=== PATIENT | female | born 2005 | race Caucasian/White ===

== ENCOUNTER 2025-03-10 09:22 | Outpatient (AMB) | payer MEDICAID, SELFPAY ==
--- NOTE | 2025-03-10 09:31 | AMB.OBINITIA ---
Vital Signs 03/10/25 09:32 Height 1.78 m Height Method Stated Weight 57.266 kg Weight Measurement Method Standing Scale BMI 18.1 BP 121/74 Blood Pressure Source Automatic Cuff Blood Pressure Location Left Upper Arm Position Sitting Respiration 16 Pulse 85 Pulse Source Monitor Temp 97.2 F Temp Source Oral Pulse Oximetry (%) 98 Oxygen Delivery Method Room Air Allergies/Home Meds Allergies & Medications Allergies No Known Allergies Allergy (Verified 03/10/25 09:34) Medication Reconciliation No Known Home Medications 03/10/25 [History Confirmed 03/10/25] Intake Visit Data Collection New Patient or Established: New Patient (never been to [facility]) Reason for Visit:: obi Seen by Clinical Staff ONLY (RN/MA): No Content Engineer Required: No Do You Feel Safe at Home: Yes Authorities Contacted: N/A PCP or OBGYN visit in last 3 months: Yes Date of Last PCP or OBGYN visit: 03/08/25 Hx Now: Yes Are you currently on any form of Control: No Last menstrual period: 02/02/25 Pain Present Currently: No Pain Scale Used: Mclain-Murphy/Numerical Pain scale:: 0 Smoking Status Smoking Status: Never smoker Questionnaires Covid-19 Vaccine Questionnaire Has patient been vacinated for Covid-19 Have you been vacinated for Covid-19: Yes PHQ-9 PHQ-2 Over the last 2 weeks, how often have you been bothered by any of the following problems? 1. Little interest or pleasure in doing things: not at all 2. Feeling down, depressed, or hopeless: not at all Total score: 0 PHQ-9 3. Trouble falling or staying asleep, or sleeping too much: Not at all 4. Feeling tired or having little energy: Not at all 5. Poor appetite or overeating: Not at all 6. Feeling bad about yourself - or that you are a failure or have let yourself or your family down: Not at all 7. Trouble concentrating on things, such as reading the newspaper or watching television: Not at all 8. Moving or speaking so slowly that other people could have noticed? - Or the opposite - being so fidgety or restless that you have been moving around a lot more than usual: not at all 9. Thoughts that you would be better off or of hurting yourself in some way: Not at all Total score: 0 If you checked off any problems, how difficult have these problems made it for you to do your work, take care of things at home, or get along with other people?: not difficult at all Source: Developed by Drs. Tomy Barcenas, Génesis Chatterjee, Pierce Nash and colleagues, with an educational florin from [employer]. Depression screen completed yes Social History Living Situation History Marital Status: Single Lives With: Family Housing: House Tobacco History Smoking Status: Never smoker Second Hand Smoke Exposure: No Domestic Abuse History Do You Feel Safe at Home: Yes History of Present Illness HPI Narrative 19 Years old G2 P?0 at gestational age?5.1 weeks based on last menstrual period of dated02/02/2025 No complaints so far Here for first visit LMP as above Ultrasound refer today OB/medical problems based on last second trimester miscarriage , has cervical incompetence Allergies as noted Surgical history none social history denies OB Initial Visit OB Flowsheet OB Flowsheet Initial Weight: Not Recorded Date <del>?</del> EGA Weight BP Alb Glu CTX Pres Fundal ht FHR Mov Dilation Station Effacement Hx Notes Visit Note 03/10/25 <del>?</del> 5w 1d 57.266 kg 121/74 Menstrual History Menstrual reliability: definite Flow: normal Menstrual regularity: irregular Monthly: No Age at menarche: 16 On control pills at conception: No OB History : 2 Para: 1 Hx # Pregnancies: 1 # of Living Children: 0 Delivery History 1st : date: 10/01/24 sex: female Gestational age at delivery (weeks): 20 Delivery type: vaginal Delivery complications: CAME EARLY BABY NOT ALIVE DEMISE History of depression before or after : No Infection History & Risk Evaluation History of STDs: none HIV risk evaluation: low risk Hepatitis B risk evaluation: low risk Patient or partner has history of Genital Herpes: No Varicella/chicken pox status: immunized Genetic Screening & History Genetic Screening/Teratology Counseling - Includes patient, baby's father, or anyone in either family with: 1. Patient's age 35 years or older as of estimated date of delivery: No 2. Thalassemia (French, Burkinan, Mediterranean, or Background); MCV less than 80: No 3. Neural Tube Defect (Meningomyelocele, Spina Bifida, or Anencephaly): No 4. Congenital Heart Defect: No 5. Down Syndrome: No 6. Feliz-Sachs (Ashkenazi Denominational, Cajun, Occitan [place]): No 7. Kaity Disease (Ashkenazi Denominational): No 8. Familial Dysautonomia (Ashkenazi Denominational): No 9. Sickle Cell Disease or Trait (): No 10. Hemophilia or other blood disorders: No 11. Muscular Dystrophy: No 12. Cystic Fibrosis: No 13. Elijah's Chorea: No 14. Mental Retardation/Autism: No 15. Other inherited genetic or chromosomal disorder: No 16. Maternal Metabolic Disorder (EG,TYPE 1 Diabetes, PKU): No 17. Patient or baby's father had a child with defects not listed above: No 18. Recurrent loss or a stillbirth: No 19. Medications (including supplements, vitamins, herbs or otc drugs)/illicit/recreational drugs/alcohol since last menstrual period: No 20. Any other: No Infection History 1. Live with someone with TB or exposed to TB: No 2. Rash or viral illness since last menstrual period: No 3. Hepatitis B,C: No Other (see comments) Source: [employer] Review of Systems Review of Systems Narrative Review of Systems: Reviewed all 14 point review of systems and all is negative except as noted Exam Narrative Physical exam: Alert and oriented x 3 no shortness of breath Pain no chest pain no palpitations Chest clear bilaterally no additional sounds, no wheezing no rales CVS regular rate and rhythm No CVAT Abdomen nontender, normal bowel sounds No guarding no rigidity No hernias Results Objective Laboratory: ordered ob initial labs Imaging: [facility] Procedures OBC Clinic LOC & Office Proc's Nursing/Assessment Patient Status: Established Patient OB Clinic Nursing Assessment: Medication Reconciliation, Update PMH in EMR and Vital Signs OB Clinic Coordination of Care: Consent,records obtained, informed consent, Education Simp Pt/Fam, Lab and Imaging orders, Results/Orders obtained and Staff clarify orders Established Patient Charge Established Patient Point Assignment: 80 Established Patient Point Charge: EP Level 3 (80-115) Assessment & Plan Diagnosis / Problem List (1) Cervical incompetence: Status: Acute (2) : Status: Acute (3) High risk case management patient in first trimester: Status: Acute Plan ob intial labs and NIPT at 9 weeks refer to MFM at [facility] for consult/ and for cervical cerclage Additional Assessment patient to do normal activity Additional Plan Follow Up: 4 Weeks
[2025-03-10 09:32] VITALS: BP 121/74; PULSE 85; RESP 16; TEMP 36.2; O2SAT 98; BMI 18.1
== END 2025-03-10 10:25 | disposition home or self-care (01) ==
LOC: HODSOBC 09:22
PROVIDERS: Supervising Provider Obstetrics & Gynecology; Visit Provider Obstetrics & Gynecology
DX: O09.891 Supervision of other high risk pregnancies, first trimester (principal); O34.31 Maternal care for cervical incompetence, first trimester; Z3A.01 Less than 8 weeks gestation of pregnancy
CPT/HCPCS: 99213; G0463

== ENCOUNTER 2025-03-30 10:50 | Outpatient (AMB) | payer MEDICAID, SELFPAY ==
--- NOTE | 2025-03-30 10:56 | OBCLNT_ITS ---
Vital Signs 03/30/25 10:57 Height 1.78 m Height Method Stated Weight 56.869 kg Weight Measurement Method Standing Scale BMI 17.9 BP 116/70 Blood Pressure Source Automatic Cuff Blood Pressure Location Left Upper Arm Position Standing Respiration 18 Pulse 82 Pulse Source Monitor Temp 97.2 F Temp Source Oral Pulse Oximetry (%) 98 Oxygen Delivery Method Room Air Allergies/Home Meds Allergies & Medications Allergies No Known Allergies Allergy (Verified 03/30/25 10:57) Medication Reconciliation No Known Home Medications 03/10/25 [History Confirmed 03/30/25] Intake Visit Data Collection New Patient or Established: Established Patient (seen at [facility] within 3 years) Reason for Visit:: OBC Seen by Clinical Staff ONLY (RN/MA): No Chin Strap Maker Required: No Do You Feel Safe at Home: Yes Authorities Contacted: N/A PCP or OBGYN visit in last 3 months: Yes Date of Last PCP or OBGYN visit: 03/10/25 Hx Now: Yes Are you currently on any form of Control: No Pain Present Currently: No Pain Scale Used: Mclain-Murphy/Numerical Pain scale:: 0 Smoking Status Smoking Status: Never smoker Immunizations Flu Vaccine in the Last 12 Months: No Flu Vaccine Exclusion Criteria: No Exclusion Criteria Questionnaires Covid-19 Vaccine Questionnaire Has patient been vacinated for Covid-19 Have you been vacinated for Covid-19: Yes PHQ-9 PHQ-2 Over the last 2 weeks, how often have you been bothered by any of the following problems? 1. Little interest or pleasure in doing things: not at all 2. Feeling down, depressed, or hopeless: not at all Total score: 0 PHQ-9 3. Trouble falling or staying asleep, or sleeping too much: Not at all 4. Feeling tired or having little energy: Not at all 5. Poor appetite or overeating: Not at all 6. Feeling bad about yourself - or that you are a failure or have let yourself or your family down: Not at all 7. Trouble concentrating on things, such as reading the newspaper or watching television: Not at all 8. Moving or speaking so slowly that other people could have noticed? - Or the opposite - being so fidgety or restless that you have been moving around a lot more than usual: not at all 9. Thoughts that you would be better off or of hurting yourself in some way: Not at all Total score: 0 If you checked off any problems, how difficult have these problems made it for you to do your work, take care of things at home, or get along with other people?: not difficult at all Source: Developed by Drs. Tomy Barcenas, Génesis Chatterjee, Pierce Nash and colleagues, with an educational florin from [employer]. Depression screen completed yes Social History Living Situation History Lives With: Family Housing: House Tobacco History Smoking Status: Never smoker Second Hand Smoke Exposure: No Domestic Abuse History Do You Feel Safe at Home: Yes Care OB Visit Log OB Flowsheet Initial Weight: Not Recorded Date -?-?-?-?-?-?-?-?-?-?-?-?- EGA Weight BP Alb Glu CTX Pres Fundal ht FHR Mov Dilation Station Effacement Hx Notes Visit Note 03/10/25 -?-?-?-?-?-?-?-?-?-?-?-?- 5w 1d 57.266 kg 121/74 03/30/25 -?-?-?-?-?-?-?-?-?-?-?-?- 8w 0d 56.869 kg 116/70 MERLYN Calculator Estimated Delivery Date Method Current WG Current Estimate 11/09/25 LMP (Certain) 8w 0d Notes Visit Date: 03/30/25 Last Updated by: Marietta Joya MD referral to perinatology at [facility] for evaluation and for cervical cerclage /on 03/10/2025 NIPT ordered for 9 weeks / dated by LMP of 02/02/2025 recently started working at [employer] and has to lift boxes and had spotting and went to the hospital and was told she had a hematoma ? reprt not available Labs done 03/14/2025 AB Positive / HbsAg negative, hepatitis C antibody nonreactive, RPR nonreactive, rubella immune, HIV nonreactive, chlamydia and gonorrhea negative, hemoglobin 13.1, platelets 434, urine culture negative, hemoglobin A1c 5.5 and she has an appointment with the perinatologist coming upon 05/07/2025 She had spotting and will excuse from work US today show FCA and GS and CRL c/w 7.1 week / labs reviewed with patient / still needs to do NIPT Follow up 4 week Visit Date: 03/10/25 Last Updated by: Marietta Joya MD ordered ob Initial labs and also referral to perinatology at [facility] for evaluation and for cervical cerclage / follow up 4 weeks NIPT ordered for 9 weeks / dated by LMP of 02/02/2025 Office Procedures OBC Clinic LOC & Office Proc's Nursing/Assessment Patient Status: Established Patient OB Clinic Nursing Assessment: Medication Reconciliation, Update PMH in EMR and Vital Signs OB Clinic Coordination of Care: Consent,records obtained, informed consent, Education Simp Pt/Fam, Lab and Imaging orders, Results/Orders obtained and Staff clarify orders Special Needs: Heart tones Established Patient Charge Established Patient Point Assignment: 110 Established Patient Point Charge: EP Level 3 (80-115) Assessment & Plan Diagnosis / Problem List (1) High risk case management patient in first trimester: Status: Acute (2) Cervical incompetence: Status: Acute (3) : Status: Acute Qualifiers: Weeks of gestation: 8 weeks Qualified Code(s): Z3A.08 - 8 weeks gestation of (4) Threatened : Status: Acute Additional Plan excuse from work now for threatened miscarriage and ongoing as has h/o of ce rvical incompetence and will see Perinatologist on 05/07/2025 for cerclage evaluation Follow up 4 weeks Follow Up: 4 Weeks
[2025-03-30 10:57] VITALS: BP 116/70; PULSE 82; RESP 18; TEMP 36.2; O2SAT 98; BMI 17.9
== END 2025-03-30 11:51 | disposition home or self-care (01) ==
LOC: HODSOBC 10:50
PROVIDERS: Supervising Provider Obstetrics & Gynecology; Visit Provider Obstetrics & Gynecology
DX: O09.891 Supervision of other high risk pregnancies, first trimester (principal); O34.31 Maternal care for cervical incompetence, first trimester; O20.0 Threatened abortion; Z3A.08 8 weeks gestation of pregnancy
CPT/HCPCS: 99213; G0463

== ENCOUNTER 2025-04-09 22:42 | Emergency (ER) | payer MEDICAID, SELFPAY ==
[2025-04-09 22:43] VITALS: BMI 26.3
[2025-04-09 22:59] VITALS: BP 118/72; PULSE 80; RESP 20; TEMP 36.9; O2SAT 99
--- NOTE | 2025-04-09 23:02 | XR_ITS ---
Examination: Complete OB ultrasound, less than 14 weeks, transabdominal Date and time of exam: April 06, 2025 1113 hours INDICATIONS: Vaginal bleeding beginning 2 days ago Technique: Obstetrical ultrasound images less than 14 weeks performed via transabdominal imaging Findings: A normal shaped single intrauterine gestation is present in the uterus. CRL 1.8 cm corresponds to 8 weeks 2 days gestational age Cardiac motion 180 bpm Ultrasonographic survey of visible and placental structures unremarkable. Amniotic fluid volume appears appropriate for this estimated gestational age. Right ovary 3.4 cm arterial flow Left ovary 3.6 cm arterial flow IMPRESSION: Viable intrauterine gestation 8 weeks 2 days.
[2025-04-09 23:49] LABS: Collection Type, Urine Voided
[2025-04-10 00:01] LABS: Basophils # (Auto) 0.0 Thou/mm3 (0.0-0.2); Basophils % (Auto) 0 % (0-2.5); Eosinophils # (Auto) 0.1 Thou/mm3 (0.0-0.5); Eosinophils % (Auto) 1 % (0-10); Hematocrit 37.3 % (36.0-46.0); Hemoglobin 12.7 g/dL (12.0-16.0); Immature Granulocytes Auto 0.02 Thou/mm3 (0.00-0.00); Lymphocytes # (Auto) 3.8 Thou/mm3 (1.0-5.0); Lymphocytes % (Auto) 35 % (10-50); Mean Corpuscular HGB Conc 34.0 g/dl (31.0-37.0); Mean Corpuscular Hemoglobin 28.2 pg (25.0-35.0); Mean Corpuscular Volume 83 fL (80-100); Monocytes # (Auto) 0.6 Thou/mm3 (0.0-0.8); Monocytes % (Auto) 6 % (0-12); Neutrophils # (Auto) 6.6 Thou/mm3 (1.8-7.7); Neutrophils % (Auto) 59 % (37-80); Nucleated Red Blood Cell # 0.00 Thou/mm3 (0.00-0.00); Nucleated Red Blood Cell % 0 /100 WBC (0); Platelet Count 368 Thou/mm3 (140-440); RDW Standard Deviation 44.1 fL (36.4-46.3); Red Blood Count 4.51 Miln/mm3 (4.00-5.20); White Blood Count 11.1 Thou/mm3 (4.5-11.0)
[2025-04-10 00:05] LABS: Amorphous Crystals,Urine Present (Absent); Bacteria,Urine Rare; Bilirubin,Urine Negative (Negative); Blood,Urine Negative (Negative); Clarity,Urine Clear (Clear/Hazy); Color,Urine Yellow (Lt Yel-Yel); Glucose, Urine Negative (Negative); Ketones,Urine 3+ (Negative); Leukocyte Esterase,Urine Negative (Negative); Nitrite,Urine Negative (Negative); PH,Urine 6.0 (5.0-7.0); Protein,Urine Trace (Neg - Trace); RBC,Urine 4 /hpf (0-3); Specific Gravity,Urine 1.030 (1.001-1.035); Squamous Epithelial Cell,Urine 10 /hpf (0-5); Urobilinogen,Urine Negative mg/dL (0.0-1.0); WBC,Urine 1 /hpf (0-5)
[2025-04-10 00:21] LABS: Alanine Aminotransferase 21 U/L (10-49); Albumin, Serum 4.8 gm/dL (3.5-5.0); Albumin/Globulin Ratio 2.1 (1.2-2.2); Alkaline Phosphatase 49 U/L (46-116); Anion Gap 12 (7-16); Aspartate Amino Transferase 16 U/L (0-34); BUN/Creatinine Ratio 13 Ratio (12-20); Bilirubin,Total 0.2 mg/dL (0.3-1.2); Blood Urea Nitrogen 8 mg/dL (9-23); Calcium 9.7 mg/dL (8.3-10.6); Calcium (Corrected) 9.7 mg/dL (8.5-10.1); Carbon Dioxide 23.7 mMol/L (20.0-31.0); Chloride 103 mMol/L (98-107); Creatinine (Component) 0.6 mg/dL (0.6-1.3); Estimated Creatinine Clearance 112.9 mL/min (>60); Globulin 2.3 gm/dL (2.3-3.5); Glucose 125 mg/dL (74-106); Osmolality,Calculated 276 (275-295); Potassium 3.5 mMol/L (3.4-5.1); Sodium 139 mMol/L (136-145); Total Protein 7.1 gm/dL (5.7-8.2); eGFR > 60 See Note
--- NOTE | 2025-04-10 01:56 | PD.EDVAGBL ---
ED OB Contraction Preg RMI/HPI General Chief complaint: Abdominal Pain Stated complaint: ABD PAIN AND VOMITING, SPOTTING,9WKS Time Seen by Provider: 04/09/25 22:53 Arrival date/time: 04/09/25 22:42 Related Data Home Medications ?Medication ?Instructions ?Recorded ?Confirmed No Known Home Medications 03/10/25 03/30/25 Allergies Allergy/AdvReac Type Severity Reaction Status Date / Time No Known Allergies Allergy Verified 04/09/25 22:43 Course Orders Category Date Time Status US OB <= 14 weeks fetus Stat Exams 04/09/25 23:02 Completed ABO/RH Type Stat Lab 04/09/25 23:07 Completed Beta HCG,Quantitative Stat Lab 04/09/25 23:07 Completed CBC Stat Lab 04/09/25 23:07 Completed CMP [Comprehensive Metabolic Panel] Stat Lab 04/09/25 23:07 Completed Urinalysis Stat Lab 04/09/25 23:39 Completed Vital Signs Vital signs: Vital Signs Temperature 98.5 F 04/09/25 22:59 Pulse Rate 80 04/09/25 22:59 Respiratory Rate 20 04/09/25 22:59 Blood Pressure 118/72 04/09/25 22:59 Pulse Oximetry (%) 99 04/09/25 22:59 Oxygen Delivery Method Room Air 04/09/25 22:59 Discharge Plan Prescriptions/Referrals Prescriptions/Med Rec: No Action No Known Home Medications Referrals: Riley Powell MD [Primary Care Provider, Family Practice] - In 1 week Patient/Caregiver Discharge Instructions Print Language: Greek
== END 2025-04-10 02:42 | disposition home or self-care (01) ==
PROVIDERS: Nurse Practitioner Family; Emergency Provider Emergency Medicine; PCP Family Medicine
DX: O26.851 Spotting complicating pregnancy, first trimester (principal); O21.9 Vomiting of pregnancy, unspecified; Z3A.09 9 weeks gestation of pregnancy
CPT/HCPCS: 36415; 76801; 80053; 81001; 84702; 85025; 86900; 86901; 99283

== ENCOUNTER 2025-04-20 10:00 | Outpatient (AMB) | payer MEDICAID, SELFPAY ==
--- NOTE | 2025-04-20 10:05 | AMB.OBPNC ---
Vital Signs 04/20/25 10:06 Height 1.47 m Height Method Stated Weight 54.885 kg Weight Measurement Method Standing Scale BMI 25.2 BP 111/76 Blood Pressure Source Automatic Cuff Blood Pressure Location Right Upper Arm Position Sitting Respiration 16 Pulse 80 Pulse Source Monitor Temp 97.7 F Temp Source Temporal Artery Scan Pulse Oximetry (%) 98 Oxygen Delivery Method Room Air Allergies/Home Meds Allergies & Medications Allergies No Known Allergies Allergy (Verified 04/20/25 10:07) Medication Reconciliation No Known Home Medications 03/10/25 [History Confirmed 04/20/25] Immunizations Immunizations Flu Vaccine in the Last 12 Months: No Flu Vaccine Exclusion Criteria: Refused by Patient Care OB Visit Log OB Flowsheet Initial Weight: Not Recorded Date <del>?</del> EGA Weight BP Alb Glu CTX Pres Fundal ht FHR Mov Dilation Station Effacement Hx Notes Visit Note 03/10/25 <del>?</del> 4w 0d 57.266 kg 121/74 03/30/25 <del>?</del> 6w 6d 56.869 kg 116/70 04/20/25 <del>?</del> 9w 6d 54.885 kg 111/76 159 follow up in 4 weeks MERLYN Calculator Estimated Delivery Date Method Current WG Current Estimate 11/17/25 Ultrasound #1 10w 0d Other Estimates 11/09/25 LMP (Certain) 11w 1d Notes Visit Date: 04/20/25 Last Updated by: Marietta Joya MD patient was in ED on 04/11/2025 at [place] and was given Nitrofurantoin and Zofran referred to [facility] for cerclage evaluation bedside US tpday shows heart rate of 159bpm Visit Date: 03/30/25 Last Updated by: Marietta Joya MD referral to perinatology at [facility] for evaluation and for cervical cerclage /on 03/10/2025 NIPT ordered for 9 weeks / dated by LMP of 02/02/2025 recently started working at [employer] and has to lift boxes and had spotting and went to the hospital and was told she had a hematoma ? reprt not available Labs done 03/14/2025 AB Positive / HbsAg negative, hepatitis C antibody nonreactive, RPR nonreactive, rubella immune, HIV nonreactive, chlamydia and gonorrhea negative, hemoglobin 13.1, platelets 434, urine culture negative, hemoglobin A1c 5.5 and she has an appointment with the perinatologist coming upon 05/07/2025 She had spotting and will excuse from work US today show FCA and GS and CRL c/w 7.1 week / labs reviewed with patient / still needs to do NIPT Follow up 4 week Visit Date: 03/10/25 Last Updated by: Marietta Joya MD ordered ob Initial labs and also referral to perinatology at [facility] for evaluation and for cervical cerclage / follow up 4 weeks NIPT ordered for 9 weeks / dated by LMP of 02/02/2025 Office Procedures OBC Clinic LOC & Office Proc's Nursing/Assessment Patient Status: Established Patient OB Clinic Nursing Assessment: Medication Reconciliation, Update PMH in EMR and Vital Signs OB Clinic Coordination of Care: Complex Care and Chronic Disease 1-5, Consent,records obtained, informed consent, Lab and Imaging orders, Results/Orders obtained and Staff clarify orders Special Needs: Heart tones Established Patient Charge Established Patient Point Assignment: 120 Established Patient Point Charge: EP Level 4 (120-155) Assessment & Plan Diagnosis / Problem List (1) Cervical incompetence: Status: Acute (2) High risk case management patient in first trimester: Status: Acute (3) Threatened : Status: Acute Assessment and Plan: patient was in ED on 04/11/2025 at [place] and was given Nitrofurantoin and Zofran referred to [facility] for cerclage evaluation bedside US tpday shows heart rate of 159bpm Additional Plan Follow Up: 4 Weeks
[2025-04-20 10:06] VITALS: BP 111/76; PULSE 80; RESP 16; TEMP 36.5; O2SAT 98; BMI 25.2
== END 2025-04-20 11:21 | disposition home or self-care (01) ==
LOC: HODSOBC 10:00
PROVIDERS: PCP Family Medicine; Referring Provider Family Medicine; Supervising Provider Obstetrics & Gynecology; Visit Provider Obstetrics & Gynecology
DX: O09.891 Supervision of other high risk pregnancies, first trimester (principal); O34.31 Maternal care for cervical incompetence, first trimester; O20.0 Threatened abortion; Z3A.09 9 weeks gestation of pregnancy; Z28.21 Immunization not carried out because of patient refusal
CPT/HCPCS: 99214; G0463

== ENCOUNTER 2025-05-17 13:44 | Outpatient (AMB) | payer MEDICAID, SELFPAY ==
[2025-05-17 14:01] VITALS: BP 115/71; PULSE 86; RESP 18; TEMP 36.2; O2SAT 98; BMI 25.6
--- NOTE | 2025-05-17 14:01 | OBCLNT_ITS ---
Vital Signs 05/17/25 14:01 Height 1.47 m Height Method Stated Weight 55.395 kg Weight Measurement Method Standing Scale BMI 25.6 BP 115/71 Blood Pressure Source Automatic Cuff Blood Pressure Location Left Upper Arm Position Sitting Respiration 18 Pulse 86 Pulse Source Monitor Temp 97.2 F Temp Source Oral Pulse Oximetry (%) 98 Oxygen Delivery Method Room Air Allergies/Home Meds Allergies & Medications Allergies No Known Allergies Allergy (Verified 05/17/25 14:03) Medication Reconciliation No Known Home Medications 03/10/25 [History Confirmed 05/17/25] Immunizations Immunizations Flu Vaccine in the Last 12 Months: No Flu Vaccine Exclusion Criteria: No Exclusion Criteria Care OB Visit Log OB Flowsheet Initial Weight: Not Recorded Date -?-?-?-?-?-?-?-?-?-?-?-?- EGA Weight BP Alb Glu CTX Pres Fundal ht FHR Mov Dilation Station Effacement Hx Notes Visit Note 03/10/25 -?-?-?-?-?-?-?-?-?-?-?-?- 4w 0d 57.266 kg 121/74 03/30/25 -?-?-?-?-?-?-?-?-?-?-?-?- 6w 6d 56.869 kg 116/70 04/20/25 -?-?-?-?-?-?-?-?-?-?-?-?- 9w 6d 54.885 kg 111/76 159 follow up in 4 weeks 05/17/25 -?-?-?-?-?-?-?-?-?-?-?-?- 13w 5d 55.395 kg 115/71 14 155 MERLYN Calculator Estimated Delivery Date Method Current WG Current Estimate 11/17/25 Ultrasound #1 13w 5d Other Estimates 11/09/25 LMP (Certain) 14w 6d Notes Visit Date: 05/17/25 Last Updated by: Marietta Joya MD patient with recommendation and transfer for cerclage to [facility] on 03/10/2025 and now at 13.5 weeks was in [place] ED yesterday and US per records states 13.4 weeks and given keflex fo UTI and given zithromax 2 tabs x 1 / patient shows some pictures of brownish discharge and states none now / she is advised to go to ED if that happens again. Meanwhile since her US follow up is changed to 06/20/2025 now will get a stat Ob Us for cervical length and viability / follow up in 2 weeks / Will get vaginal cultures next visit for ureaplasma and mycoplasma as she took zithromax yesterday / also MSAFP on follow up / reviewed perinatology report from 05/09/2025 . cervix was 3 cm US done 05/09/2025 c/w 12.6 weeks at [facility] and recommend serial monitoring every 2 weeks for cervical length / patient states she has an appointment for follow up at [facility] / NIPT is negative and c/w XY Visit Date: 04/20/25 Last Updated by: Marietta Joya MD patient was in ED on 04/11/2025 at [place] and was given Nitrofurantoin and Zofran referred to [facility] for cerclage evaluation bedside US tpday shows heart rate of 159bpm Visit Date: 03/30/25 Last Updated by: Marietta Joya MD referral to perinatology at [facility] for evaluation and for cervical cerclage /on 03/10/2025 NIPT ordered for 9 weeks / dated by LMP of 02/02/2025 recently started working at [employer] and has to lift boxes and had spotting and went to the hospital and was told she had a hematoma ? reprt not available Labs done 03/14/2025 AB Positive / HbsAg negative, hepatitis C antibody nonreactive, RPR nonreactive, rubella immune, HIV nonreactive, chlamydia and gonorrhea negative, hemoglobin 13.1, platelets 434, urine culture negative, hemoglobin A1c 5.5 and she has an appointment with the perinatologist coming upon 05/07/2025 She had spotting and will excuse from work US today show FCA and GS and CRL c/w 7.1 week / labs reviewed with patient / still needs to do NIPT Follow up 4 week Visit Date: 03/10/25 Last Updated by: Marietta Joya MD ordered ob Initial labs and also referral to perinatology at [facility] for evaluation and for cervical cerclage / follow up 4 weeks NIPT ordered for 9 weeks / dated by LMP of 02/02/2025 Office Procedures OBC Clinic LOC & Office Proc's Nursing/Assessment Patient Status: Established Patient OB Clinic Nursing Assessment: Medication Reconciliation, Update PMH in EMR and Vital Signs OB Clinic Coordination of Care: Complex Care and Chronic Disease 1-5, Consent,records obtained, informed consent, Education Simp Pt/Fam, Lab and Imaging orders, Results/Orders obtained and Staff clarify orders Special Needs: Heart tones Established Patient Charge Established Patient Point Assignment: 135 Established Patient Point Charge: EP Level 4 (120-155) Assessment & Plan Diagnosis / Problem List (1) Threatened : Status: Acute (2) : Status: Acute Qualifiers: Weeks of gestation: 8 weeks Qualified Code(s): Z3A.08 - 8 weeks gestation of (3) Cervical incompetence: Status: Acute Additional Assessment patient with recommendation and transfer for cerclage to [facility] on 03/10/2025 and now at 13.5 weeks was in [place] ED yesterday and US per records states 13.4 weeks and given keflex fo UTI and given zithromax 2 tabs x 1 / patient shows some pictures of brownish discharge and states none now / she is advised to go to ED if that happens again. Meanwhile since her US follow up is changed to 06/20/2025 now will get a stat Ob Us for cervical length and viability / follow up in 2 weeks / Will get vaginal cultures next visit for ureaplasma and mycoplasma as she took zithromax yesterday / also MSAFP on follow up / reviewed perinatology report from 05/09/2025 . cervix was 3 cm US done 05/09/2025 c/w 12.6 weeks at [facility] and recommend serial monitoring every 2 weeks for cervical length / patient states she has an appointment for follow up at [facility] / NIPT is negative and c/w XY
== END 2025-05-17 14:59 | disposition home or self-care (01) ==
PROVIDERS: Supervising Provider Obstetrics & Gynecology; Visit Provider Obstetrics & Gynecology
DX: O09.891 Supervision of other high risk pregnancies, first trimester (principal); O20.0 Threatened abortion; O34.31 Maternal care for cervical incompetence, first trimester; O23.41 Unspecified infection of urinary tract in pregnancy, first trimester; Z3A.13 13 weeks gestation of pregnancy
CPT/HCPCS: 99214; G0463

== ENCOUNTER 2025-05-30 13:09 | Outpatient (AMB) | payer MEDICAID, SELFPAY ==
--- NOTE | 2025-05-30 13:22 | OBCLNT_ITS ---
Vital Signs 05/30/25 13:26 Height 1.47 m Height Method Stated Weight 55.111 kg Weight Measurement Method Standing Scale BMI 25.4 BP 108/71 Blood Pressure Source Automatic Cuff Blood Pressure Location Left Upper Arm Position Sitting Respiration 16 Pulse 84 Pulse Source Monitor Temp 97.9 F Temp Source Oral Pulse Oximetry (%) 97 Oxygen Delivery Method Room Air Allergies/Home Meds Allergies & Medications Allergies No Known Allergies Allergy (Verified 05/30/25 13:27) Medication Reconciliation vitamins-iron fumarate 66 mg iron-folic acid 1 mg tablet tab PO 05/30/25 [History Confirmed 05/30/25] Immunizations Immunizations Flu Vaccine in the Last 12 Months: No Flu Vaccine Exclusion Criteria: Refused by Patient Care OB Visit Log OB Flowsheet Initial Weight: Not Recorded Date -?-?-?-?-?-?-?-?-?-?-?-?- EGA Weight BP Alb Glu CTX Pres Fundal ht FHR Mov Dilation Station Effacement Hx Notes Visit Note 03/10/25 -?-?-?-?-?-?-?-?-?-?-?-?- 4w 0d 57.266 kg 121/74 03/30/25 -?-?-?-?-?-?-?-?-?-?-?-?- 6w 6d 56.869 kg 116/70 04/20/25 -?-?-?-?-?-?-?-?-?-?-?-?- 9w 6d 54.885 kg 111/76 159 follow up in 4 weeks 05/17/25 -?-?-?-?-?-?-?-?--?-?-?-?- 13w 5d 55.395 kg 115/71 14 155 05/30/25 -?-?-?-?-?-?-?-?-?-?-?-?- 15w 4d 55.111 kg 108/71 15 144 patient with recommendation and transfer for cerclage to [facility] on 03/10/2025 and now at 13.5 weeks was in [place] ED yesterday and US per re cords states 13.4 weeks and given keflex fo UTI and given zithromax 2 tabs x 1 / patient shows some pictures of brownish discharge and states none now / she is advised to go to ED if that happens again. Meanwhile since her US follow up is changed to 06/20/2025 now will get a stat Ob Us for cervical length and viability / follow up in 2 weeks / Will get vaginal cultures next visit for ureaplasma and mycoplasma as she took zithromax yesterday / also MSAFP on follow up / reviewed perinatology report from 05/09/2025 . cervix was 3 cm US done 05/09/2025 c/w 12.6 weeks at [facility] and recommend serial monitoring every 2 weeks for cervical length / patient states she has an appointment for follow up at [facility] / NIPT is negative and c/w XY Visit Date: 04/20/25 Last Updated by: Marietta Joya MD patient was in ED on 04/11/2025 at [facility] and was given Nitrofurantoin and Zofran referred to [facility] for cercla ge evaluation bedside US tpday shows heart rate of 159bpm Visit Date: 03/30/25 Last Updated by: Marietta Jyoa MD referral to perinatology at [facility] for eval uation and for cervical cerclage /on 03/10/2025 NIPT ordered for 9 weeks / dated by LMP of 02/02/2025 recently started working at [employer] as to lift boxes and had spotting and went to the hospital and was told she had a hematoma ? reprt not available Labs done 03/14/2025 AB Positive / HbsAg negative, hepatitis C antibody nonreactive, RPR nonreactive, rubella immune, HIV nonreactive, chlamydia and gonorrhea negative, hemoglobin 13.1, platelets 434, urine culture negative, hemoglobin A1c 5.5 and she has an appointment with the perinatologist coming upon 05/07/2025 She had spotting and will excuse from wo rk US today show FCA and GS and CRL c/w 7.1 week / labs reviewed with patient / still needs to do NIPT Follow up 4 week Visit Date: 03/10/25 Last Updated by: Marietta Joya MD ordered ob Initial labs and also referra l to perinatology at [facility] for evaluation and for cervical cerclage / follow up 4 weeks NIPT ordered for 9 weeks / dated by LMP of 02/02/2025 MERLYN Calculator Estimated Delivery Date Method Current WG Current Estimate 11/17/25 Ultrasound #1 15w 4d Other Estimates 11/09/25 LMP (Certain) 16w 5d Notes Visit Date: 05/30/25 Last Updated by: Marietta Joya MD 15.4 weeks / Seeing [facility] for possible cerclage / needs biweekly US and vaginal swab for mycoplasma and ureaplasma today done/ She had an US with [facility] on 05/09/2025 and her PPROM at 20 weeks in her last / [facility] thinks at this time her PPROM was likely idiopathic and will monitor cervical length for shortening and has a follow up US scheduled for 06/20/2025 MSAFP order today Visit Date: 05/17/25 Last Updated by: Marietta Joya MD patient with recommendation and transfer for cerclage to [facility] on 03/10/2025 and now at 13.5 weeks was in [place] ED yesterday and US per records states 13.4 weeks and given keflex fo UTI and given zithromax 2 tabs x 1 / patient shows some pictures of brownish discharge and states none now / she is advised to go to ED if that happens again. Meanwhile since her US follow up is changed to 06/20/2025 now will get a stat Ob Us for cervical length and viability / follow up in 2 weeks / Will get vaginal cultures next visit for ureaplasma and mycoplasma as she took zithromax yesterday / also MSAFP on follow up / reviewed perinatology report from 05/09/2025 . cervix was 3 cm US done 05/09/2025 c/w 12.6 weeks at [facility] and recommend serial monitoring every 2 weeks for cervical length / patient states she has an appointment for follow up at [facility] / NIPT is negative and c/w XY Visit Date: 04/20/25 Last Updated by: Marietta Joya MD patient was in ED on 04/11/2025 at [place] and was given Nitrofurantoin and Zofran referred to [facility] for cerclage evaluation bedside US tpday shows heart rate of 159bpm Visit Date: 03/30/25 Last Updated by: Marietta Joya MD referral to perinatology at [facility] for evaluation and for cervical cerclage /on 03/10/2025 NIPT ordered for 9 weeks / dated by LMP of 02/02/2025 recently started working at [employer] and has to lift boxes and had spotting and went to the hospital and was told she had a hematoma ? reprt not available Labs done 03/14/2025 AB Positive / HbsAg negative, hepatitis C antibody nonreactive, RPR nonreactive, rubella immune, HIV nonreactive, chlamydia and gonorrhea negative, hemoglobin 13.1, platelets 434, urine culture negative, hemoglobin A1c 5.5 and she has an appointment with the perinatologist coming upon 05/07/2025 She had spotting and will excuse from work US today show FCA and GS and CRL c/w 7.1 week / labs reviewed with patient / still needs to do NIPT Follow up 4 week Visit Date: 03/10/25 Last Updated by: Marietta Joya MD ordered ob Initial labs and also referral to perinatology at [facility] for evaluation and for cervical cerclage / follow up 4 weeks NIPT ordered for 9 weeks / dated by LMP of 02/02/2025 Office Procedures OBC Clinic LOC & Office Proc's Nursing/Assessment Patient Status: Established Patient OB Clinic Nursing Assessment: Medication Reconciliation, Update PMH in EMR and Vital Signs OB Clinic Coordination of Care: Complex Care and Chronic Disease 1-5, Consent,records obtained, informed consent, Education Simp Pt/Fam, 1 Ins Authorization, Lab and Imaging orders, Results/Orders obtained and Staff clarify orders Special Needs: Heart tones Established Patient Charge Established Patient Point Assignment: 150 Established Patient Point Charge: EP Level 4 (120-155) Assessment & Plan Diagnosis / Problem List (1) H/O pre-term labor: Status: Acute (2) High risk case management patient in second trimester: Status: Acute Additional Plan G2 Ab 1 and h/o PPROM at 20 weeks in first / 15.4 weeks / Seeing MFM for possible cerclage / needs biweekly US and vaginal swab for mycoplasma and ureaplasma today done/ She had an US with MFM on 05/09/2025 and her PPROM at 20 weeks in her last / MFM thinks at this time her PPROM was likely idiopathic and will monitor cervical length for shortening and has a follow up US scheduled for 06/20/2025 [facility] order today Follow Up: 3 Weeks
[2025-05-30 13:26] VITALS: BP 108/71; PULSE 84; RESP 16; TEMP 36.6; O2SAT 97; BMI 25.4
--- NOTE | 2025-05-30 14:12 | AMB.OBPNC ---
Vital Signs 05/30/25 13:26 05/30/25 14:15 Height 1.47 m Height Method Stated Weight 55.111 kg Weight Measurement Method Standing Scale BMI 25.4 BP 108/71 108/71 Blood Pressure Source Automatic Cuff Blood Pressure Location Left Upper Arm Position Sitting Respiration 16 16 Pulse 84 84 Pulse Source Monitor Temp 97.9 F 97.9 F Temp Source Oral Pulse Oximetry (%) 97 97 Oxygen Delivery Method Room Air Allergies/Home Meds Allergies & Medications Allergies No Known Allergies Allergy (Verified 05/30/25 13:27) Medication Reconciliation vitamins-iron fumarate 66 mg iron-folic acid 1 mg tablet tab PO 05/30/25 [History Confirmed 05/30/25] Immunizations Immunizations Flu Vaccine in the Last 12 Months: No Flu Vaccine Exclusion Criteria: No Exclusion Criteria Care OB Visit Log OB Flowsheet Initial Weight: Not Recorded Date <del>?</del> EGA Weight BP Alb Glu CTX Pres Fundal ht FHR Mov Dilation Station Effacement Hx Notes Visit Note 03/10/25 <del>?</del> 4w 0d 57.266 kg 121/74 03/30/25 <del>?</del> 6w 6d 56.869 kg 116/70 04/20/25 <del>?</del> 9w 6d 54.885 kg 111/76 159 follow up in 4 weeks 05/17/25 <del>?</del> 13w 5d 55.395 kg 115/71 14 155 05/30/25 <del>?</del> 15w 4d 55.111 kg 108/71 108/71 15 144 patient with recommendation and transfer for cerclage to [facility] on 03/10/2025 and now at 13.5 weeks was in [place] ED yesterday and US per records states 13.4 weeks and given keflex fo UTI and given zithromax 2 tabs x 1 / patient shows some pictures of brownish discharge and states none now / she is advised to go to ED if that happens again. Meanwhile since her US follow up is changed to 06/20/2025 now will get a stat Ob Us for cervical length and viability / follow up in 2 weeks / Will get vaginal cultures next visit for ureaplasma and mycoplasma as she took zithromax yesterday / also MSAFP on follow up / reviewed perinatology report from 05/09/2025 . cervix was 3 cm US done 05/09/2025 c/w 12.6 weeks at [facility] and recommend serial monitoring every 2 weeks for cervical length / patient states she has an appointment for follow up at [facility] / NIPT is negative and c/w XY Visit Date: 04/20/25 Last Updated by: Marietta Joya MD patient was in ED on 04/11/2025 at [place] and was given Nitrofurantoin and Zofran referred to [facility] for cerclage evaluation bedside US tpday shows heart rate of 159bpm Visit Date: 03/30/25 Last Updated by: Marietta Joya MD referral to perinatology at [facility] for evaluation and for cervical cerclage /on 03/10/2025 NIPT ordered for 9 weeks / dated by LMP of 02/02/2025 recently started working at [employer] and has to lift boxes and had spotting and went to the hospital and was told she had a hematoma ? reprt not available Labs done 03/14/2025 AB Positive / HbsAg negative, hepatitis C antibody nonreactive, RPR nonreactive, rubella immune, HIV nonreactive, chlamydia and gonorrhea negative, hemoglobin 13.1, platelets 434, urine culture negative, hemoglobin A1c 5.5 and she has an appointment with the perinatologist coming upon 05/07/2025 She had spotting and will excuse from work US today show FCA and GS and CRL c/w 7.1 week / labs reviewed with patient / still needs to do NIPT Follow up 4 week Visit Date: 03/10/25 Last Updated by: Marietta Joya MD ordered ob Initial labs and also referral to perinatology at [facility] for evaluation and for cervical cerclage / follow up 4 weeks NIPT ordered for 9 weeks / dated by LMP of 02/02/2025 MERLYN Calculator Estimated Delivery Date Method Current WG Current Estimate 11/17/25 Ultrasound #1 16w 3d Other Estimates 11/09/25 LMP (Certain) 17w 4d Notes Visit Date: 05/30/25 Last Updated by: Marietta Joya MD 15.4 weeks / Seeing [facility] for possible cerclage / needs biweekly US and vaginal swab for mycoplasma and ureaplasma today done/ She had an US with [facility] on 05/09/2025 and her PPROM at 20 weeks in her last / M thinks at this time her PPROM was likely idiopathic and will monitor cervical length for shortening and has a follow up US scheduled for 06/20/2025 MSAFP order today Visit Date: 05/17/25 Last Updated by: Marietta Joya MD patient with recommendation and transfer for cerclage to [facility] on 03/10/2025 and now at 13.5 weeks was in [place] ED yesterday and US per records states 13.4 weeks and given keflex fo UTI and given zithromax 2 tabs x 1 / patient shows some pictures of brownish discharge and states none now / she is advised to go to ED if that happens again. Meanwhile since her US follow up is changed to 06/20/2025 now will get a stat Ob Us for cervical length and viability / follow up in 2 weeks / Will get vaginal cultures next visit for ureaplasma and mycoplasma as she took zithromax yesterday / also MSAFP on follow up / reviewed perinatology report from 05/09/2025 . cervix was 3 cm US done 05/09/2025 c/w 12.6 weeks at [facility] and recommend serial monitoring every 2 weeks for cervical length / patient states she has an appointment for follow up at [facility] / NIPT is negative and c/w XY Visit Date: 04/20/25 Last Updated by: Marietta Joya MD patient was in ED on 04/11/2025 at [place] and was given Nitrofurantoin and Zofran referred to [facility] for cerclage evaluation bedside US tpday shows heart rate of 159bpm Visit Date: 03/30/25 Last Updated by: Mraietta Joya MD referral to perinatology at [facility] for evaluation and for cervical cerclage /on 03/10/2025 NIPT ordered for 9 weeks / dated by LMP of 02/02/2025 recently started working at [employer] and has to lift boxes and had spotting and went to the hospital and was told she had a hematoma ? reprt not available Labs done 03/14/2025 AB Positive / HbsAg negative, hepatitis C antibody nonreactive, RPR nonreactive, rubella immune, HIV nonreactive, chlamydia and gonorrhea negative, hemoglobin 13.1, platelets 434, urine culture negative, hemoglobin A1c 5.5 and she has an appointment with the perinatologist coming upon 05/07/2025 She had spotting and will excuse from work US today show FCA and GS and CRL c/w 7.1 week / labs reviewed with patient / still needs to do NIPT Follow up 4 week Visit Date: 03/10/25 Last Updated by: Marietta Joya MD ordered ob Initial labs and also referral to perinatology at [facility] for evaluation and for cervical cerclage / follow up 4 weeks NIPT ordered for 9 weeks / dated by LMP of 02/02/2025 Office Procedures OBC Clinic LOC & Office Proc's Nursing/Assessment Patient Status: Established Patient OB Clinic Nursing Assessment: Medication Reconciliation, Update PMH in EMR and Vital Signs OB Clinic Coordination of Care: Complex Care and Chronic Disease 1-5, Consent,records obtained, informed consent, Education Simp Pt/Fam, 1 Ins Authorization, Lab and Imaging orders, Results/Orders obtained and Staff clarify orders Special Needs: Heart tones Established Patient Charge Established Patient Point Assignment: 150 Established Patient Point Charge: EP Level 4 (120-155) Assessment & Plan Additional Plan 15.4 weeks / Seeing MFM for possible cerclage / needs biweekly US and vaginal swab for mycoplasma and ureaplasma today done/ She had an US with MFM on 05/09/2025 and her PPROM at 20 weeks in her last / MFM thinks at this time her PPROM was likely idiopathic and will monitor cervical length for shortening and has a follow up US scheduled for 06/20/2025 MSAFP order today Follow Up: 3 Weeks
[2025-05-30 14:15] VITALS: BP 108/71; PULSE 84; RESP 16; TEMP 36.6; O2SAT 97
== END 2025-05-30 14:00 | disposition home or self-care (01) ==
PROVIDERS: Supervising Provider Obstetrics & Gynecology; Visit Provider Obstetrics & Gynecology
DX: O09.212 Supervision of pregnancy with history of pre-term labor, second trimester (principal); Z3A.15 15 weeks gestation of pregnancy; Z28.21 Immunization not carried out because of patient refusal
CPT/HCPCS: 99214; G0463